=== PATIENT | female | born 1965 | race Hispanic/Latino ===

== ENCOUNTER → 2019-04-10 | Outpatient (CLI) | payer OTHER | END | disposition home or self-care (01) | LOC: RAH 12:47 | PROVIDERS: ATTEND Family Medicine | DX: Z12.31 Encounter for screening mammogram for malignant neoplasm of breast (principal) | CPT/HCPCS: 77067 ==

== ENCOUNTER → 2024-03-21 | Outpatient (CLI) | payer OTHER ==
--- NOTE | 2024-03-21 16:02 | HMCIMG ---
CT HEART SAVER PROMOTIONAL HISTORY: Calcium scoring COMPARISON: None TECHNIQUE: Computed tomography of the heart was performed with ECG gating and suspended respiration. Postprocessing was performed on a computer workstation to obtain diastolic phase images, determine calcium score and provide a quantitative assessment of extent of disease. This CT included only the heart. HeartSaver score is 156.30. Please see cardiac calcium score report. The available CT chest images show no acute finding. CT was performed with one or more following dose reduction techniques: automated exposure control, adjustment of the mA and kv according to patient's size, or use of a iterative reconstruction technique.
== END | disposition home or self-care (01) ==
LOC: RAH 15:36
PROVIDERS: ATTEND Internal Medicine Cardiovascular Disease
DX: Z13.6 Encounter for screening for cardiovascular disorders (principal)
CPT/HCPCS: 75571

== ENCOUNTER → 2024-03-28 | Outpatient (CLI) | payer BC ==
--- NOTE | 2024-03-28 16:12 | HMCIMG ---
US THYROID/NECK REASON: unspecified disorder of the thyroid COMPARISON: None TECHNIQUE: Routine thyroid sonogram was performed. FINDINGS: There is markedly inhomogeneous thyroid parenchyma. Right lobe is 3.9 x 1.5 x 1.2 cm, left 3.3 x 1.0 x 1.1 cm. There are no focal masses. There is no adjacent lymphadenopathy. IMPRESSION: 1. Inhomogeneous thyroid gland consistent with goiter. 2. No focal lesion identified.
== END | disposition home or self-care (01) ==
LOC: RAH 15:27
PROVIDERS: ATTEND Internal Medicine Cardiovascular Disease
DX: E04.8 Other specified nontoxic goiter (principal); E07.9 Disorder of thyroid, unspecified
CPT/HCPCS: 76536

== ENCOUNTER → 2024-04-03 | Outpatient (CLI) | payer BC, MEDICARE ==
--- NOTE | 2024-04-04 10:29 | HMCIMG ---
PROCEDURE: MAMMO DX BILATERAL HISTORY: Breast pain COMPARISON: 04/10/2019 TECHNIQUE: Bilateral digital diagnostic mammogram with CAD was performed. No additional views were obtained. FINDINGS: The breasts are heterogeneously dense, which may obscure small masses. There is no evidence of a dominant mass, or suspicious microcalcification. There is no evidence of nipple retraction or skin thickening. IMPRESSION: 1. Stable mammogram. BI-RADS: CATEGORY 2: BENIGN FINDINGS Recommend monthly self breast exam as well as annual clinical examination. A negative x-ray should not delay biopsy if a dominant or clinically suspicious mass is present, since 8-10% of cancers are not identified by mammography. Dense breasts particularly, may obscure an underlying neoplasm. Some of these may be detected clinically and therefore, clinical examination is an essential part of breast evaluation.
== END | disposition home or self-care (01) ==
LOC: RAH 14:44
PROVIDERS: ATTEND Family Medicine
DX: R92.333 Mammographic heterogeneous density, bilateral breasts (principal); N64.4 Mastodynia
CPT/HCPCS: 77066